=== PATIENT | male | born 1945 | race Caucasian/White ===

== ENCOUNTER 2017-01-20 05:37 | Outpatient (CLI) | payer OTHER ==
[~2017-01-20] VITALS: Ht 177.8 cm; Wt 88.5 kg
[2017-01-20] MEDS ORDERED: HYDR12.56 PO (15:09)
[2017-01-20] MEDS ORDERED: LISI-552 PO (15:09)
== END 2017-01-20 15:10 ==
LOC: PREOP 05:37
PROVIDERS: ATTEND Surgery
DX: Z01.818 Encounter for other preprocedural examination (principal); Z12.11 Encounter for screening for malignant neoplasm of colon

== ENCOUNTER 2017-01-24 07:08 | Day surgery (SDC) | payer MEDICARE, OTHER ==
[~2017-01-24 07:08] MED LIST: HYDR12.56 PO; LISI-552 PO
[2017-01-24] MEDS ORDERED: NS IV 500 ML 500 ML ONE (07:24)
[2017-01-24] MEDS ORDERED: NS IV 500 ML 500 ML IV PRN (07:28)
[2017-01-24 07:46] VITALS: BP 136/86
[2017-01-24] MEDS ORDERED: fentaNYL INJECTION 100 MCG/2 ML AMP ONE (07:51)
[2017-01-24] MEDS ORDERED: MIDAZOLAM 2 MG/2 ML (VERSED) VIAL ONE ×3 (07:51)
--- NOTE | 2017-01-24 07:58 | Conscious Sedation/ASA ---
Conscious Sedation Pre-Proced Time Reviewed: 07:58 ASA Class: 2 Airway Mallampati Classification: ([place] appropriate class) I. II. III, IV Lungs Heart ASA score ASA 1: a normal healthy patient ASA 2: a patient with a mild systemic disease (mid diabetes, controlled hypertension, obesity ASA 3: a patient with a severe systemic disease that limits activity (angina , COPD, prior Myocardial infarction) ASA 4: a patient with an incapacitating disease that is a constant threat to life (CHF, renal failure) ASA 5: a moribund patient not expected to survive 24 hrs. (ruptured aneurysm) ASA 6: a declared brain patient whose organs are being harvested. For emergent operations, add the letter E after the classification Grade 1 Sedation Plan: Discussed options with patient/fam Note The patient is an appropriate candidate to undergo the planned procedure, sedation, and anesthesia. The patient immediately re-assessed prior to indication. LEAH KHANNA MD Jan 24, 2017 7:58 am
--- NOTE | 2017-01-24 07:58 | History & Physicial ---
History of Present Illness History of Present Illness Reason for visit/HPI to undergo screening colonoscopy. He has a personal history of polyps. No family history of colon cancer Date of Admission Date Seen by Provider: Jan 24, 2017 Time Seen by Provider: 07:56 I consulted on this patient on 01/24/17 07:55 Attending Physician Leah Khanna MD Admitting Physician Zo Minaya MD Consult Allergies and Home Medications Allergies Coded Allergies: Penicillins (Verified Allergy, Unknown, HIVES, 01/20/17) Home Medications Hydrochlorothiazide 12.5 Mg Tablet, 12.5 MG PO DAILY, (Reported) Lisinopril 20 Mg Tablet, 20 MG PO DAILY, (Reported) Past Uduhmrj-Pjpagr-Snptis Hx Patient Social History Marrital Status: Employed/Student: retired Alcohol Use: Regular Use Number of Drinks Today: GG Alcohol Beverage of Choice: Whiskey Recreational Drug Use: No Smoking Status: Never a Smoker Recent Foreign Travel: No Contact w/other who traveled: No Recent Hopitalizations: No Recent Infectious Disease Expo: No Immunizations Up To Date Tetanus Booster (TDap): Unknown Date of Pneumonia Vaccine: Apr 29, 2016 Seasonal Allergies Seasonal Allergies: No Surgeries No Respiratory No Currently Using CPAP: No Currently Using BIPAP: No Cardiovascular No Hypertension Neurological No Reproductive System Hx Reproductive Disorders: No Sexually Transmitted Disease: No HIV/AIDS: No Gastrointestinal Yes Diverticulosis, Hemorrhoids Musculoskeletal No Endocrine History of Endocrine Disorders: No HEENT History of HEENT Disorders: Yes HEENT Disorders: Cataract Loss of Vision: Denies Hearing Impairment: Denies Cancer No Psychosocial History of Psychiatric Problem: No Integumentary History of Skin or Integumenta: No Family Medical History Significant Family History: No Pertinent Family Hx Constitutional: no symptoms reported EENTM: no symptoms reported Respiratory: no symptoms reported Gastrointestinal: no symptoms reported Genitourinary: no symptoms reported Musculoskeletal: no symptoms reported Skin: no symptoms reported Psychiatric/Neurological: No Symptoms Reported Physical Exam Vital Signs Vital Sign - Last 12Hours 01/24/17 07:46 Temp 96.9 Pulse 56 Resp 18 B/P (MAP) 136/86 Pulse Ox 97 Capillary Refill : General Appearance: No Apparent Distress HEENT: Normal ENT Inspection Neck: Normal Inspection Respiratory: Lungs Clear Cardiovascular: Regular Rate, Rhythm Gastrointestinal: Non Tender Rectal: Deferred Back: Normal Inspection Extremity: Normal Inspection Neurologic/Psychiatric: Alert, Oriented x3 Skin: Warm/Dry Assessment/Plan Assessment and Plan gentleman with a personal history of polyps. Hypertension, controlled. 4 screening colonoscopy. Details of the procedure, polyps, diverticulosis, post polypectomy bleeding and a very low incidence of iatrogenic colonic perforation discussed in detail. Seems to be in agreement to proceed. Problems: LEAH KHANNA MD Jan 24, 2017 7:58 am
[2017-01-24] MEDS: fentaNYL INJECTION 100 MCG/2 ML AMP IVP PRN ×2 (08:00→08:03)
[2017-01-24] MEDS: MIDAZOLAM 2 MG/2 ML (VERSED) VIAL IVP PRN ×2 (08:00→08:06)
--- NOTE | 2017-01-24 08:32 | Endo Procedure Record ---
Endo Procedure Report Date of Procedure Jan 24, 2017 Surgeon (s) LEAH KHANNA MD Post Procedure/Op Diagnosis sigmoid diverticulosis. 1 mm polyp at mid sigmoid colon Procedure Performed Colonoscopy to cecum Hot biopsy polypectomy Description of Procedure Anesthesia Type: Conscious Sedation Specimen(s) collected/removed sigmoid polyp Description of the Procedure Indication for procedure: This gentleman, with a personal history of polyps, came in for surveillance colonoscopy. He denied any family history of colon cancer. Informed consent was obtained after reviewing the procedure in detail. Description of procedure: He was placed in left lateral decubitus position and his vital signs were monitored. Conscious sedation was achieved using Versed and fentanyl. Examination of the perianal area revealed external hemorrhoids and some skin tags. Digital rectal examination was unremarkable. The colonoscope was then introduced into the rectum and advanced all the way up to the cecum. The quality of bowel preparation was excellent The scope was then withdrawn slowly and the mucosa examined in a systematic fashion. Findings: 1. Mild diverticulosis without any complications 2. 1 mm polyp at the mid sigmoid colon, that was excised with hot biopsy forceps ago he tolerated the procedure well and was taken back to the nursing area in a stable condition. Impression: Personal history of polyps. Small sigmoid polyp excised. Recommend surveillance in 5 years. Copies To: GIOVANNI QUINTERO MD, XAVIER M MD Jan 24, 2017 8:31 am
--- NOTE | 2017-01-24 08:33 | Discharge Inst-Simple/Standard ---
Discharge Inst-Standard Discharge Medications New, Converted or Re-Newed RX: Other Patient Instructions/Follow Up Plan of Care/Instructions/FU: repeat colonoscopy in 5 years Activity as Tolerated: Yes Discharge Diet: No Restrictions LEAH KHANNA MD Jan 24, 2017 8:33 am
[2017-01-24 08:35] VITALS: BP 127/82
[2017-01-24 09:15] VITALS: BP 107/78
[2017-01-24 09:33] VITALS: BP 107/78
== END 2017-01-24 09:25 | disposition home or self-care (01) ==
LOC: ENDO 07:08
PROVIDERS: ATTEND Surgery
DX: Z12.11 Encounter for screening for malignant neoplasm of colon (principal); K63.5 Polyp of colon; K57.30 Diverticulosis of large intestine without perforation or abscess without bleeding; Z86.010 Personal history of colon polyps; I10 Essential (primary) hypertension
CPT/HCPCS: 88305